=== PATIENT | male | born 1975 | race Caucasian/White ===

== ENCOUNTER → 2024-07-24 15:17 | Outpatient (REF) | payer OTHER, SELFPAY | LOC: RAD 15:17 | PROVIDERS: ATTENDING PHYSICIAN Nurse Practitioner Family | DX: M25.511 Pain in right shoulder (principal) | CPT/HCPCS: 73030 ==

== ENCOUNTER → 2024-08-26 07:15 | Outpatient (REF) | payer OTHER, SELFPAY | LOC: RAD 07:15 | PROVIDERS: ATTENDING PHYSICIAN Orthopaedic Surgery Hand Surgery; FAMILY PHYSICIAN Nurse Practitioner Family | DX: S05.50XA Penetrating wound with foreign body of unspecified eyeball, initial encounter (principal) | CPT/HCPCS: 70030 ==

== ENCOUNTER 2025-03-02 12:54 | Emergency (ER) | payer SELFPAY ==
[2025-03-02 12:59] VITALS: BP 113/86
--- NOTE | 2025-03-02 13:15 | EDRN ---
Lidia Gagnon PA in room w/ pt at this time.
--- NOTE | 2025-03-02 13:30 | ED.GENMED ---
History of Present Illness
General
Chief Complaint: Allergic Reaction
Time Seen by Provider: 03/02/25 13:17
History of Present Illness
History of Present Illness:
49-year-old male presents the emergency department for evaluation after an insect sting to the right posterior lower leg. Has a history of anaphylaxis and used his EpiPen before coming to the ER. At this time he denies any other symptoms other
than local irritation to the right ankle.
Past History
Past History
ED Past Medical History: Other ([place] tear, chronic headaches.)
ED Past Surgical History: Other (Hernia )
Social History
Tobacco: Non-smoker
Alcohol: Occasional
Drug: None
Personal:
Living: with family
Employment: Employed (Police )
Family History
Family History: Other (Grandfather with early coronary disease, strong history of migraine headaches and strokes in the family.)
Review of Systems
Review of Systems
Allergies reviewed?: Yes
All Other Systems: ROS reviewed and negative except as documented in HPI and ROS
Phy Exam
Physical Exam
Physical Exam:
GEN: Well appearing, NAD, WDWN
HEENT: Oral mucosa moist, no scleral icterus
Cardiac: Regular rate
Lung: No respiratory distress, no tachypnea
MSK: No gross deformity or injuries
Skin: Good color, no pallor or jaundice, no rashes. Minor erythema to the right posterior lower leg with no obvious wound or bleeding
Neuro: AO x3, moves all extremities freely
Psych: Calm, cooperative
Course
Orders/Labs/Results
Orders:
Orders
03/02/25 13:30
Diphenhydramine [Benadryl] 25 mg IM NOW STA
Vital Signs
Initial and Last Documented VS:
Initial Vital Signs
Temp Pulse Resp BP Pulse Ox
98 F 87 16 113/86 100
03/02/25 12:59 03/02/25 12:59 03/02/25 12:59 03/02/25 12:59 03/02/25 12:59
Last Documented Vital Signs
Temp Pulse Resp BP Pulse Ox
98 F 65 16 136/81 97
03/02/25 12:59 03/02/25 13:48 03/02/25 13:48 03/02/25 13:48 03/02/25 13:48
MDM/Problems Addressed
MDM/Problems Addressed:
Patient given antihistamines and observed in the ED with no further progression of symptoms. Refill for EpiPen prescribed
*Pulse Oximetry
SaO2: 100
Oxygen Mode of Delivery: Room air
Patient hypoxic: no
*Critical Care Note
Total Time (30-74mins, 75-104mins- exclusive of procedures): Not Applicable
ED Attending Note
-
Portions of this chart may have been created with voice recognition software.� Occasional wrong word or��sound alike� substitutions may have occurred due to the inherent limitations of voice recognition software.
Discharge Plan
Departure
Patient Disposition: Home (Routine Discharge)
Date of Disposition: 03/02/25
Time of Disposition: 14:54
Patient with high blood pressure during this ER visit?: No
Discharge Problem:
Yellow jacket sting
Instructions: Insect bites and stings
Prescriptions:
New
epinephrine [EpiPen 2-Torres] 0.3 mg/0.3 mL auto-injector
0.3 mg IM ONCE Qty: 2 0RF
No Action
epinephrine [EpiPen 2-Torres] 0.3 mg/0.3 mL auto-injector
0.3 mg IM ONCE PRN (Reason: anaphylaxis) Qty: 2 1RF
Paxlovid 300 mg (150 mg x 2)-100 mg tablets,dose pack
See Rx Instructions .ROUTE .COMPLEX Qty: 30 0RF
Rx Instructions:
take TWO 150 mg tablets of nirmatrelvir with ONE 100 mg tablet of ritonavir twice daily for 5 days
Referrals:
Yvonne Glaser MD [Family Provider, Family Practice]
Interventions
Interventions:
*Risk Screen - Suicide Last Done: 03/02/25 13:00
*General Assessment Last Done: 03/02/25 13:43
*Neglect/Abuse Screening Last Done: 03/02/25 13:00
*ED- Fall Risk Assessment Last Done: 03/02/25 13:43
*ED COVID-19 Vaccine History Last Done: 03/02/25 13:43
*Nursing Disposition Last Done: 03/02/25 15:02
ED- Cardiac Assessment Last Done: 03/02/25 13:48
ED- Pulmonary Assessment Last Done: 03/02/25 13:48
ED-Skin Assessment Last Done: 03/02/25 13:48
Discharge Date and Time
Discharge Date/Time: 03/02/25 15:03
Print Language: KOREAN
[2025-03-02] MEDS: BENADRYL 25 MG IM (13:36)
[2025-03-02 13:39] VITALS: BMI 27.4
[2025-03-02 13:48] VITALS: BP 136/81
== END 2025-03-02 15:03 | disposition home or self-care (01) ==
LOC: EMR 12:54
PROVIDERS: EMERGENCY PHYSICIAN Emergency Medicine; FAMILY PHYSICIAN Family Medicine
DX: T63.461A Toxic effect of venom of wasps, accidental (unintentional), initial encounter (principal); L53.9 Erythematous condition, unspecified
CPT/HCPCS: 99282